=== PATIENT | male | born 1955 | race Caucasian/White ===

== ENCOUNTER 2017-11-21 15:52 | Emergency (ER) | payer BC ==
[2017-11-21 16:03] VITALS: BP 115/63; BMI 20.5
--- NOTE | 2017-11-21 16:32 | DR.GENAD ---
HPI - PCP Primary Care Physician: BASIM - Complaint/Symptoms Chief Complaint Doctors Comments: Patient admits to vomiting and diarrhea since yesterday. Denies fever. Admits to chills. Chief Complaint:: PT C/O STOMACH PAIN AND VOMTTING SINCE YESTERDAY. PT C/O CHEST CONGESTION AND IS HAVING CHILLS. DIARRHEA/VOMITTING/NO APPETITE - Source History Provided: Patient - Mode of Arrival Mode of Arrival: Ambulatory - Timing Onset of Chief Complaint: 11/20/17 PMH - PMH Past Medical History: Yes Past Medical History: COPD, GERD Past Surgical History: Yes Surgical History: Angioplasty/Stents Past Surgical History Comment: HEMORRHOID SURGERY NOVEMBER 06, 2017 - Family History History of Family Medical Conditions: Yes Family Medical History: Diabetes Mellitus, [place], Coronary Artery Disease, Hypertension - Social History Does patient currently use any type of tobacco product: Yes Have you used tobacco products in the last 12 months: Yes Type of Tobacco Use: Cigarettes How many years tobacco product used: 40 Does any household member use tobacco: Yes Alcohol Use: Rarely Do you use any recreational Drugs:: No Lives With: Spouse Lives Where: Home - infectious screening In the last 2 months have you had wt loss of >10#?: NO Have you traveled outside the country in the last 6 months?: No Isolation: Standard ROS - Review of Systems Eyes: No Symptoms Reported ENTM: No Symptoms Reported Respiratoy: No Symptoms Reported Cardiovascular: No Symptoms Reported Gastrointestinal/Abdominal: No Symptoms Reported Genitourinary: No Symptoms Reported Neurological: No Symptoms Reported Musculoskeletal: No Symptoms Reported Integumentary: No Symptoms Reported Hematologic/Lymphatic: No Symptoms Reported Endocrine: No Symptoms Reported Psychiatric: No Symptoms Reported All Other Systems: Reviewed and Negative PE - Vital Signs Vitals: Temperature 98.5 F Pulse Rate 72 Respiratory Rate 20 Blood Pressure [Right Arm] 119/70 Blood Pressure 115/63 O2 Sat by Pulse Oximetry 99 - General Limitations: No Limitations General Appearance: Alert, In No Apparent Distress - Head Head Exam: Normal Inspection, Atraumatic - Eyes Eye exam: Normal Appearance, PERRL, EOMI - ENT ENT Exam: Normal Exam External Ear Exam: Normal External Inspection TM/Canal Exam: Bilateral Normal Nose Exam: Normal Nose Exam Mouth Exam: Normal Inspection Throat Exam: Normal Inspection - Neck Neck Exam: Normal Inspection, Full ROM - Chest Chest Inspection: Normal Inspection - Respiratory Respiratory Exam: Normal Lung Sounds Bilat Respiratory Exam: Bilateral Clear to Auscultation - Cardiovascular Cardiovascular Exam: Regular Rate, Normal Rhythm - Abdominal Exam Abdominal Exam: Normal Inspection Abdominal Tenderness: RLQ - Extremities Extremities Exam: Normal Inspection, Full ROM - Back Back Exam: Normal Inspection - Neurologic Neurological Exam: Alert, Oriented X3, CN II-XII Intact - Psychiatric Psychiatric Exam: Normal Affect, Normal Mood - Skin Skin Exam: Warm, Dry ROR - Labs Reviewed Result Diagrams: 11/21/17 16:46 11/21/17 17:00 Laboratory: WBC 11.1 X10^3/uL (3.6-10.0) H 11/21/17 16:46 RBC 4.79 X10^6/uL (4.7-6.0) 11/21/17 16:46 Hgb 14.8 g/dL (13.5-18.0) 11/21/17 16:46 Hct 42.9 % (42.0-54.0) 11/21/17 16:46 MCV 89.4 fL (80.0-100.0) 11/21/17 16:46 MCH 30.9 pg (27.0-34.0) 11/21/17 16:46 MCHC 34.5 g/dL (33.0-35.0) 11/21/17 16:46 RDW 13.8 % (11.6-16.5) 11/21/17 16:46 Plt Count 236 X10^3/uL (150.0-450.0) 11/21/17 16:46 MPV 8.2 fL (7.4-11.0) 11/21/17 16:46 Neut % (Auto) 71.0 % (42.0-75.0) 11/21/17 16:46 Lymph % (Auto) 20.1 % (21.0-51.0) L 11/21/17 16:46 [place] % (Auto) 7.5 % (0.0-13.0) 11/21/17 16:46 Eos % (Auto) 0.9 % (0.9-2.9) 11/21/17 16:46 Baso % (Auto) 0.5 % (0.2-1.0) 11/21/17 16:46 Neut # (Auto) 7.9 x10^3/uL (2.2-4.8) H 11/21/17 16:46 Lymph # (Auto) 2.2 X10^3/uL (1.3-2.9) 11/21/17 16:46 [place] # (Auto) 0.8 x10^3/uL (0.3-0.8) 11/21/17 16:46 Eos # (Auto) 0.1 x10^3/uL (0.0-0.2) 11/21/17 16:46 Baso # (Auto) 0.1 X10^3/uL (0.0-0.1) 11/21/17 16:46 Absolute Nucleated RBC 0.0 /100WBC 11/21/17 16:46 - XRAY XRAY Interpreted by: Radiologist (Chest: There is unchanged blunting of the left costophrenic angle. The lungs are clear. The heart size is normal. The bowel gas pattern is unremarkable. There are least 2 up to 7mm calcifications in the right upper quadrant, projecting above the outline of the right kidney. There mild mild degenerative osteophytes in the lumbar spine. 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
[2017-11-21] MEDS ORDERED: LR 1000 ML IV 1,000 ML IV ONE ×2 (16:35→16:49)
[2017-11-21 16:53] LABS: BASOPHILS # (AUTO) 0.1 X10^3/uL (0.0-0.1); BASOPHILS % (AUTO) 0.5 % (0.2-1.0); EOSINOPHILS # (AUTO) 0.1 x10^3/uL (0.0-0.2); EOSINOPHILS % (AUTO) 0.9 % (0.9-2.9); HEMATOCRIT 42.9 % (42.0-54.0); HEMOGLOBIN 14.8 g/dL (13.5-18.0); LYMPHOCYTES # (AUTO) 2.2 X10^3/uL (1.3-2.9); LYMPHOCYTES % (AUTO) 20.1 % (21.0-51.0); MEAN CORPUSCULAR HEMOGLOBIN 30.9 pg (27.0-34.0); MEAN CORPUSCULAR HGB CONC 34.5 g/dL (33.0-35.0); MEAN CORPUSCULAR VOLUME 89.4 fL (80.0-100.0); MEAN PLATELET VOLUME 8.2 fL (7.4-11.0); MONOCYTES # (AUTO) 0.8 x10^3/uL (0.3-0.8); MONOCYTES % (AUTO) 7.5 % (0.0-13.0); NEUTROPHILS # (AUTO) 7.9 x10^3/uL (2.2-4.8); PLATELET COUNT 236 X10^3/uL (150.0-450.0); RED BLOOD COUNT 4.79 X10^6/uL (4.7-6.0); RED CELL DISTRIBUTION WIDTH 13.8 % (11.6-16.5); WHITE BLOOD COUNT 11.1 X10^3/uL (3.6-10.0)
--- NOTE | 2017-11-21 17:27 | RAD ---
History: Mid abdominal pain with nausea and vomiting since yesterday Study: Acute abdominal series Comparison: Portable chest dated September 15, 2016 Findings: There is unchanged blunting of the left costophrenic angle. The lungs are clear. The heart size is normal. The bowel gas pattern is unremarkable. There are least 2 up to 7 mm calcifications in the right upper quadrant, projecting above the outline of the right kidney. There are mild degenerative osteophytes in the lumbar spine. Impression: 1. Probable cholelithiasis 2. 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
[2017-11-21 17:39] LABS: ALANINE AMINOTRANSFERASE 21 Units/L (12-78); ALBUMIN 3.3 g/dL (3.4-5.0); ALKALINE PHOSPHATASE 88 Units/L (46-116); ASPARTATE AMINO TRANSFERASE 17 Units/L (15-37); BLOOD UREA NITROGEN 8 mg/dL (7-18); CALCIUM 8.2 mg/dL (8.5-10.1); CHLORIDE 105 mmol/L (98-107); COR CA(FOR HYPOALB) 8.8 mg/dL (8.5-10.1); CREATININE 0.98 mg/dL (0.70-1.30); SODIUM 140 mmol/L (136-145); TOTAL PROTEIN 6.8 g/dL (6.4-8.2); eGFR BLACK RACES > 60 (>60); eGFR NON BLACK RACES > 60 (>60)
== END 2017-11-21 18:06 | disposition home or self-care (01) ==
LOC: ER 15:52
DX: K80.13 Calculus of gallbladder with acute and chronic cholecystitis with obstruction (principal); M47.816 Spondylosis without myelopathy or radiculopathy, lumbar region; Z87.19 Personal history of other diseases of the digestive system
CPT/HCPCS: 36415; 74022; 80053; 85025; 86140; 96365; 99282; 99283; A4222; J7120